=== PATIENT | male | born 1965 | race Caucasian/White ===

== ENCOUNTER → 2024-08-31 09:23 | Outpatient (REF) | payer BC, SELFPAY | LOC: EMG 09:23 | PROVIDERS: ATTENDING PHYSICIAN Orthopaedic Surgery; FAMILY PHYSICIAN Family Medicine | DX: R20.0 Anesthesia of skin (principal) | CPT/HCPCS: 95886; 95911 ==

== ENCOUNTER 2025-08-09 12:43 | Emergency (ER) | payer BC, SELFPAY ==
[2025-08-09 12:55] VITALS: BP 166/100
--- NOTE | 2025-08-09 15:23 | ED.GENMED ---
History of Present Illness
General
Chief Complaint: Headache
Source: patient
Exam Limitations: none
Time Seen by Provider: 08/09/25 15:08
History of Present Illness
History of Present Illness:
59-year-old male with history of hypertension hyperlipidemia presents complaining of persistent headache to the back of his head starting months ago but gets worse throughout time. Also notes it is worse when he lays flat. The pain is along the
posterior aspect of his head without associated dizziness nausea vomiting vision changes numbness or weakness. He denies fevers or rash. He has been dealing with lower back issue and has been tending aggressive physical therapy he thinks the
headache may be related to therapy. No injuries otherwise. No other complaints at this time. He states he has been under a lot of stress lately
Phy Exam
Physical Exam
Physical Exam:
General: Well-appearing male no acute respiratory distress
HEENT: Normal cephalic atraumatic pupils equal round reactive to light TMs normal extract motions are intact scalp is without rash
Heart: Regular rate and rhythm
Lungs: Clear no wheeze
Neurologic exam: Alert and oriented no facial asymmetry good strength to the upper and lower extremities conversing appropriately.
Musculoskeletal exam: The patient is tender over the occiput without overlying swelling or erythema
Course
Orders/Labs/Results
Orders:
Orders
08/09/25 12:59
CT Head W/o Iv Contrast Urgent
Comment:
Reason For Exam: headache
Vital Signs
Initial and Last Documented VS:
Initial Vital Signs
Temp Pulse Resp BP Pulse Ox
98.1 F 112 18 166/100 98
08/09/25 12:55 08/09/25 12:55 08/09/25 12:55 08/09/25 12:55 08/09/25 12:55
Last Documented Vital Signs
Temp Pulse Resp BP Pulse Ox
98.1 F 112 18 166/100 98
08/09/25 12:55 08/09/25 12:55 08/09/25 12:55 08/09/25 12:55 08/09/25 12:55
MDM/Problems Addressed
Differential Diagnosis Includes:
Patient with posterior headache persistent symptoms worse with position changes or laying flat. No associated fever to suggest infectious source. No neurologic. Patient was concerned. CT of the head was performed through triage which was
negative for acute finding. This is very reassuring for the patient. Suspect possible tension headache recommended [id number] analgesia and follow-up with family doctor as planned. Given slow progression of headache and lack of sudden onset
headache do not suspect intracranial hemorrhage.
*Pulse Oximetry
SaO2: 98
Patient hypoxic: no
*Critical Care Note
Total Time (30-74mins, 75-104mins- exclusive of procedures): Not Applicable
ED Attending Note
-
Portions of this chart may have been created with voice recognition software.� Occasional wrong word or��sound alike� substitutions may have occurred due to the inherent limitations of voice recognition software.
Discharge Plan
Departure
Patient Disposition: Home (Routine Discharge)
Date of Disposition: 08/09/25
Time of Disposition: 15:25
Patient with high blood pressure during this ER visit?: No
Discharge Problem:
Headache
Instructions: Headache, Adult (DC), BLOOD PRESSURE
Activity Restrictions/Additional Instructions:
Consider using Excedrin [id number] for headaches. Use warm compresses to the neck. Return if worse otherwise follow-up with your doctor as planned
Interventions
Interventions:
*Risk Screen - Suicide Last Done: 08/09/25 12:58
*Neglect/Abuse Screening Last Done: 08/09/25 12:58
Discharge Date and Time
Print Language: IRISH
[2025-08-09 15:29] VITALS: BP 150/94
== END 2025-08-09 15:43 | disposition home or self-care (01) ==
LOC: EMR 12:43
PROVIDERS: EMERGENCY PHYSICIAN Emergency Medicine; FAMILY PHYSICIAN Family Medicine
DX: R51.9 Headache, unspecified (principal); I10 Essential (primary) hypertension; E78.00 Pure hypercholesterolemia, unspecified
CPT/HCPCS: 99284; 70450